=== PATIENT | male | born 1945 | race Caucasian/White ===

== ENCOUNTER → 2019-03-22 13:27 | Outpatient (CLI) | payer MEDICARE, OTHER ==
[2014-07-03 08:29] VITALS: BMI 22.9
[~2019-03-22 13:27] MED LIST: ASPIRIN EC81 M1 PO; CAPTOPRIL50 MG PO; COREG12.5 MG PO; CRESTOR10 MG PO; FISH OIL 1,2001 CAP PO; GLUCOSAMINE & C1 CAP PO; IBUPROFEN200 MG PO; LASIX20 MG PO; MULTIPLE VITAMI1 TA1 PO; VITAMIN E1000 UNIT PO; VITAMIN E400 UNI2 PO; XARELTO20 MG PO
== END | disposition home or self-care (01) ==
LOC: D.HCCECHO 13:27
PROVIDERS: ATTEND Internal Medicine Cardiovascular Disease
DX: I34.0 Nonrheumatic mitral (valve) insufficiency (principal)